=== PATIENT | female | born 1985 | race Caucasian/White ===

== ENCOUNTER 2021-03-04 08:00 | Outpatient (CLI) | payer OTHER ==
[2021-03-05 01:30] LABS: BACTERIAL VAGINOSIS DNA NEGATIVE (NEGATIVE); CANDIDA GLABRATA DNA NEGATIVE (NEGATIVE); CANDIDA GROUP DNA POSITIVE (NEGATIVE); CANDIDA KRUSEI DNA NEGATIVE (NEGATIVE); TRICHOMONAS VAGINALIS DNA NEGATIVE (NEGATIVE)
[2021-03-05 21:15] LABS: CHLAMYDIA TRACHOMATIS DNA NEGATIVE (NEGATIVE); TRICHOMONAS VAGINALIS DNA NEGATIVE (NEGATIVE)
[2021-03-05 21:18] LABS: NEISSERIA GONORRHOEAE DNA POSITIVE (NEGATIVE)
[2021-03-07 17:11] LABS: HIV AG/AB 4TH GEN NON-REACTIVE (NON-REACTIVE)
[2021-03-07 19:22] LABS: HEPATITIS C ANTIBODY NON-REACTIVE (NON-REACTIVE)
[2021-03-08 15:46] LABS: HSV 1 IGG TYPE SPECIFIC AB <0.90 index; HSV 2 IGG TYPE SPECIFIC AB <0.90 index
== END 2021-03-04 23:59 ==
LOC: LAB.N 08:00
PROVIDERS: ATTEND Family Medicine
DX: Z20.2 Contact with and (suspected) exposure to infections with a predominantly sexual mode of transmission (principal)
CPT/HCPCS: 36415; 86592; 86695; 86696; 86803; 87389; 87491; 87591; 87661; 87801

== ENCOUNTER 2023-02-13 10:42 | Emergency (ER) | payer MEDICAID, OTHER ==
[2023-02-13 11:03] VITALS: BP 134/91; O2SAT 99
--- NOTE | 2023-02-13 11:40 | ED Physician Documentation ---
History of Present Illness - Stated complaint Stated Complaint: LT EAR PX - Chief complaint Chief Complaint: Heent - Additonal information Additional information: 37-year-old female here for several days of left ear discomfort. She states she often gets hair in her ears and about a week ago she began to have the sensation that there was something stuck in her ears. Over the course of time she has used Q-tips to try and remove something from her ears. Yesterday she had increased pain and some green drainage on the Q-tip when she used it. Since then she has had some muffled hearing. Temperature of 100 degrees this morning. No recent swimming. No history of recurrent ear infections. No recent URI symptoms such as cough, congestion sore throat. She is on Ozempic for history of high blood sugars though no formal diagnosis of diabetes. Daily tobacco user. Review of Systems Constitutional: denies: Fever Ears: reports: Ear pain, Drainage/discharge. denies: Loss of hearing, Tinnitus/ringing, Foreign body Nose: reports: Reviewed and negative Throat: reports: Reviewed and negative Respiratory: reports: Reviewed and negative GI: reports: Reviewed and negative PD PAST MEDICAL HISTORY - Past Medical History Past Medical History: No Cardiovascular: None Respiratory: None Neuro: None Endocrine/Autoimmune: None GI: None METABOLIC SPECIALIST: None : None HEENT: None Psych: None Musculoskeletal: None Derm: None - Past Surgical History Past Surgical History: No - Present Medications Home Medications: Ambulatory Orders Medication Instructions Recorded Confirmed Levothyroxine Sodium [Synthroid] 175 mcg PO DAILY 02/13/23 02/13/23 NIFEdipine [Nifedipine ER] 30 mg PO DAILY 02/13/23 02/13/23 Ofloxacin [Ofloxacin Otic drops] 10 ml OT BID #10 ml 02/13/23 Semaglutide [Ozempic] 0.25 mg SQ .WEEKLY 02/13/23 02/13/23 buPROPion HCL [Wellbutrin Xl] 300 mg PO DAILY 02/13/23 02/13/23 - Allergies Allergies/Adverse Reactions: Allergies Allergy/AdvReac Type Severity Reaction Status Date / Time hepatitis B virus vaccine AdvReac Hives Verified 02/13/23 10:56 - Social History Does the pt smoke?: Yes Smoking Status: Current every day smoker PD ED PE NORMAL - General General: Alert and oriented X 3, No acute distress - HEENT HEENT: Atraumatic, Moist mucous membranes, Pharynx benign, Other (No mastoid tenderness. No anterior cervical lymphadenopathy.). No: Ears normal (Right TM unremarkable. Mild erythema to the right EAC without exudate. Left TM mildly erythematous without effusion. Left EAC markedly inflamed though no exudate.) - Neck Neck: Supple, no meningeal sign, No adenopathy - Cardiac Cardiac: RRR, No murmur - Respiratory Respiratory: Clear bilaterally Results - Vitals Vitals: Vital Signs - 24 hr 02/13/23 10:53 Temperature 37.1 C Heart Rate 94 Respiratory 16 Rate Blood Pressure 134/91 H O2 Saturation 99 Oxygen O2 Source Room air PD Medical Decision Making - ED course Complexity details: d/w patient ED course: Several days of discomfort in her ears where she thought there may have been hair trapped in it. Used Q-tips and subsequently developed some discharge and increased pain. On exam there is significant erythema of the left EAC and TM but no effusion. Clinically this is most consistent with otitis externa and not otitis media. She will be started on ofloxacin drops. Recommended discontinuation of Q-tips. No evidence of mastoiditis or malignant externa. Routine care and conservative return precautions discussed. Departure - Departure Disposition: 01 Home, Self Care Clinical Impression: Left otitis externa Qualifiers: Otitis externa type: unspecified type Chronicity: acute Qualified Code(s): H60.502 - Unspecified acute noninfective otitis externa, left ear Condition: Stable Record reviewed to determine appropriate education?: Yes Instructions: ED Otitis Externa Prescriptions: Ofloxacin [Ofloxacin Otic drops] 10 ml OT BID #10 ml Comments: Shayy as discussed at the bedside your left ear canal is red and inflamed. However there is no fluid behind the eardrum and no fluid within the ear. I recommend you stop using the Q-tips. In order to treat the external ear canal infection I would like you to crab picker the prescription for the ofloxacin antibiotic drops. Place 5 drops in your left ear twice daily for the next week. Try to keep your ear pointed up towards the ceiling for several minutes after instilling the drops to make sure they travel fully down the canal. With the antibiotic drops I would expect your pain discomfort and muffled hearin g to be getting better over the next 2 to 3 days. You can use Tylenol and ibuprofen [id number] for discomfort. If you find your symptoms or not improving despite this treatment or worsening with the development of fevers sudden severe ear pain or new discharge then please return to the ER for repeat evaluation.
== END 2023-02-13 11:44 | disposition home or self-care (01) ==
LOC: ED 10:42
DX: H60.502 Unspecified acute noninfective otitis externa, left ear (principal); F17.200 Nicotine dependence, unspecified, uncomplicated; Z79.899 Other long term (current) drug therapy; Z79.84 Long term (current) use of oral hypoglycemic drugs
CPT/HCPCS: 99282; 99283

== ENCOUNTER 2023-06-12 16:18 | Emergency (ER) | payer MEDICAID ==
[2023-06-12 16:43] VITALS: BP 137/97; O2SAT 100
--- NOTE | 2023-06-12 17:17 | ED Physician Documentation ---
History of Present Illness - Stated complaint Stated Complaint: R EAR HEARING LOSS - Chief complaint Chief Complaint: Heent - History obtained from History obtained from: Patient - History of Present Illness Timing: How many weeks ago (several weeks) Pain level max: 3 Pain level now: 3 - Additonal information Additional information: 37-year-old female presents to the emergency department stating that she has had right ear pain/fullness for the past several weeks. States decreased hearing in the right ear as well. No fevers. No chills. States that she was treated for an ear infection. No sore throat, rhinorrhea or congestion currently. Has not followed up with the PCP or ENT. Does not wear anything in her ears. She states occasionally she does have "eczema" in her ear. No drainage. Review of Systems Constitutional: denies: Fever Nose: denies: Rhinorrhea / runny nose, Congestion : denies: Now EGA PD PAST MEDICAL HISTORY - Past Medical History Past Medical History: Yes Cardiovascular: Hypertension Respiratory: None Neuro: Tremors Endocrine/Autoimmune: HyPOthyroidism, Other GI: None WAFER CLEANER: None : None HEENT: None Psych: ADD/ADHD Musculoskeletal: None Derm: None - Past Surgical History Past Surgical History: Yes /WAFER CLEANER: Dilation and currettage - Present Medications Home Medications: Ambulatory Orders Medication Instructions Recorded Confirmed Levothyroxine Sodium [Synthroid] 175 mcg PO DAILY 02/13/23 06/12/23 buPROPion HCL [Wellbutrin Xl] 300 mg PO DAILY 02/13/23 06/12/23 Amox/Clav 875/125 [Augmentin] 1 tab PO Q12H #20 tablet 06/12/23 - Allergies Allergies/Adverse Reactions: Allergies Allergy/AdvReac Type Severity Reaction Status Date / Time adhesive tape Allergy Rash Verified 06/12/23 16:32 hepatitis B virus vaccine AdvReac Hives Verified 06/12/23 16:32 nickel AdvReac Hives Verified 06/12/23 16:32 - Social History Does the pt smoke?: Yes Smoking Status: Current every day smoker Does the pt drink ETOH?: Yes Does the pt have substance abuse?: Yes Substance Use and Type: Marijuana - Immunizations Immunizations are current?: Yes - POLST Patient has POLST: No PD ED PE NORMAL - Vitals Vital signs reviewed: Yes - General General: Alert and oriented X 3, No acute distress - HEENT HEENT: Moist mucous membranes, Other (The left ear and tympanic membrane are normal. The right tympanic membrane is erythematous with purulence on the inferior aspect of the eardrum. There is some yellowish material behind the upper portion of the tympanic membrane as well. No perforation. Normal canal) - Neck Neck: Supple, no meningeal sign, No adenopathy - Cardiac Cardiac: RRR - Respiratory Respiratory: No respiratory distress, Clear bilaterally - Derm Derm: Warm and dry - Neuro Neuro: Alert and oriented X 3 Results - Vitals Vitals: Vital Signs - 24 hr 06/12/23 16:32 Temperature 36.4 C L Heart Rate 76 Respiratory 16 Rate Blood Pressure 137/97 H O2 Saturation 100 Oxygen O2 Source Room air PD Medical Decision Making - ED course Complexity details: considered differential, d/w patient ED course: 37-year-old female with what appears to be an otitis media on the right. Has abnormal coloring to the fluid in the middle ear as well. Will place her on Augmentin. Will have her follow-up with ENT for further care. Patient is well- appearing, nontoxic. Afebrile. No perforation. No mastoid tenderness. No evidence of mastoiditis. Patient counseled regarding signs and symptoms for which I believe and urgent re-evaluation would be necessary. Patient with good understanding of and agreement to plan and is comfortable going home at this time This document was made in part using voice recognition software. While efforts are made to proofread this document, sound alike and grammatical errors may occur. Departure - Departure Disposition: 01 Home, Self Care Clinical Impression: Otitis media Qualifiers: Otitis media type: unspecified Chronicity: acute Qualified Code(s): H66.90 - Otitis media, unspecified, unspecified ear Cholesteatoma Qualifiers: Laterality: right Qualified Code(s): H71.91 - Unspecified cholesteatoma, right ear Condition: Good Instructions: ED Otitis Media Acute Adult Follow-Up: JOSE GARCIA DO [Primary Care Provider] - [facility] [Provider Group] Prescriptions: Amox/Clav 875/125 [Augmentin] 1 tab PO Q12H #20 tablet Comments: Your prescription was sent to [facility] in [place]. Please take all antibiotics until gone. I would recommend to follow-up with ear nose and throat to further evaluate your eardrum. Please return if you worsen.Your prescription was sent to [facility] in [place]. Please take all antibiotics until gone. I would recommend to follow-up with ear nose and throat to further evaluate your eardrum. Please return if you worsen. Forms: PCP List Discharge Date/Time: 06/12/23 17:23
== END 2023-06-12 17:23 | disposition home or self-care (01) ==
LOC: ED 16:18
DX: H66.91 Otitis media, unspecified, right ear (principal); H71.91 Unspecified cholesteatoma, right ear; I10 Essential (primary) hypertension; E03.9 Hypothyroidism, unspecified; F17.200 Nicotine dependence, unspecified, uncomplicated; Z79.899 Other long term (current) drug therapy
CPT/HCPCS: 99282; 99283